=== PATIENT | female | born 1995 | race Caucasian/White ===

== ENCOUNTER 2018-03-24 08:03 | Outpatient (CLI) | payer BC ==
[2018-03-24] MEDS ORDERED: Iopamidol 300 61% 50 ML VIAL FS ONE (08:30)
[2018-03-24] MEDS ORDERED: EPINEPHrine 1 MG/ML AMP ONE (08:30)
[2018-03-24] MEDS ORDERED: Gadobenate Dimeglumine 529 MG/1 ML (20ML VIAL) ONE ×2 (08:30→13:03)
[2018-03-24] MEDS ORDERED: Lidocaine 1% PF 10 ML AMP ONE (08:30)
--- NOTE | 2018-03-24 12:17 | RAD ---
RIGHT HIP ARTHROGRAM: Date: 03-24-18 History: Worsening right hip pain. Technique: After informed consent was obtained, the patient was placed on the fluoroscopy table in the supine po sition. The right hip was placed in internal rotation. An area overlying the superolateral aspect of the femoral head and neck junction was marked and the area was meticulously prepped and draped in the usual sterile fashion. Skin and subcutaneous tissues were infiltrated with buffered 1% Lidocaine for local anesthesia. Utilizing fluoroscopic guidance, a 22 gauge spinal needle was advanced to the superolateral aspect of the right femoral head and neck junction. Inter stylet was removed, and a small amount of contrast w as injected demonstrating free flow of contrast away from the tip of the needle. As a result, a mixtu re prepared in the pharmacy consisting with gadolinium, Omnipaque 300, Lidocaine, and a small amount of epinephrine was then instilled into the right hip joint. Inter stylet was replaced and the needle was removed. Hemostatis was achieved with direct pressure. Dry sterile dressing was placed. The patient tolerated the procedure well and without immediate complication. Patient was transported to MRI for further imaging. IMPRESSION: 1. Technically successful right hip arthrogram. 2. AP and lateral views of the right hip demonstrate no fracture or dislocation. POS: [facility]
--- NOTE | 2018-03-24 12:26 | MRI ---
MRI RIGHT HIP WITH CONTRAST: Date: 03/24/18 HISTORY: M25.551, pain in right hip. COMPARISON: None. FINDINGS: Bones: Marrow signal is normal. No fracture. No malalignment. No stress edema. There is an osseous bump of the right femoral head/neck junction. This is anteriorly. Muscles: Muscle signal and bulk is normal. No muscle edema. Intrapelvic Soft Tissues: Small volume free fluid, likely physiologic. Labrum: There is an anterior labral tear, sagittal image 16, at the chondrolabral junction. The anterior labrum has mild fraying. Ligamentum teres is intact. No free bodies in the joint. IMPRESSION: Small anterior labral tear of the chondrolabral junction, incomplete, and does not extend through the entire substance of the labrum. There is also a mild osseous bump of the right femoral head/neck kishor ction. POS: [facility]
== END 2018-03-24 08:04 | disposition home or self-care (01) ==
LOC: RAD 08:03
PROVIDERS: ATTEND Family Medicine Sports Medicine
DX: M25.551 Pain in right hip (principal); S73.191A Other sprain of right hip, initial encounter
CPT/HCPCS: 27093; A9579; J0171; J7050